=== PATIENT | female | born 1950 | race Caucasian/White ===

== ENCOUNTER 2016-08-25 10:36 | Emergency (ER) | payer OTHER ==
[~2016-08-25] VITALS: Ht 162.6 cm; Wt 75.0 kg
[~2016-08-25 10:36] MED LIST: PHEN32.43 PO
[2016-08-25 13:01] VITALS: BP 135/75
== END 2016-08-25 13:19 | disposition home or self-care (01) ==
LOC: EMS 10:38
DX: Z76.0 Encounter for issue of repeat prescription (principal); G43.909 Migraine, unspecified, not intractable, without status migrainosus
CPT/HCPCS: 99283

== ENCOUNTER 2018-03-01 10:03 | Emergency (ER) | payer OTHER ==
[~2018-03-01] VITALS: Ht 162.6 cm; Wt 72.7 kg
[2018-03-01 11:33] VITALS: BP 117/62
== END 2018-03-01 11:38 | disposition home or self-care (01) ==
LOC: EMS 10:03
DX: Z76.0 Encounter for issue of repeat prescription (principal)
CPT/HCPCS: 99283

== ENCOUNTER 2020-06-21 20:44 | Emergency (ER) | payer MEDICARE, OTHER ==
[~2020-06-21] VITALS: Ht 162.6 cm; Wt 74.5 kg
[~2020-06-21 20:44] MED LIST changes: -PHEN32.43 PO; +PHEN32.46 PO
[2020-06-21 22:52] LABS: COVID AG,FIA SOURCE NASOPHARYNGEAL
[2020-06-21 23:47] LABS: BASOPHILS % (AUTO) 0.4 % (0.0-2.0); EOSINOPHILS % (AUTO) 0.4 % (1.0-6.0); HEMATOCRIT 41.8 % (36-46); HEMOGLOBIN 14.1 g/dL (12.0-16.0); LYMPHOCYTES # (AUTO) 1.8 K/uL (1.0-4.8); LYMPHOCYTES % (AUTO) 19.8 % (22.0-44.0); MEAN CORPUSCULAR HEMOGLOBIN 30.6 pg (26.0-34.0); MEAN CORPUSCULAR HGB CONC 33.8 G/dL (31.0-37.0); MEAN CORPUSCULAR VOLUME 91 fL (80-100); MONOCYTES # (AUTO) 0.6 K/uL (0.1-1.0); MONOCYTES % (AUTO) 6.7 % (2.0-9.0); NEUTROPHILS # (AUTO) 6.8 K/uL (1.8-7.7); NEUTROPHILS % (AUTO) 72.7 % (40.0-70.0); PLATELET COUNT (AUTO) 362 K/uL (150-450); RED BLOOD CELL COUNT(AUTO) 4.61 MIL/uL (4.00-5.20); RED CELL DISTRIBUTION WIDTH 12.6 % (11.5-14.5)
[2020-06-21 23:57] LABS: CARBON DIOXIDE 29 mmol/L (22-29); CHLORIDE 91 mmol/L (98-107); POTASSIUM 3.7 mmol/L (3.5-5.1); SODIUM SERUM 128 mmol/L (136-145)
[2020-06-21 23:58] LABS: ANION GAP 8 mmol/L (8-16); CALCIUM, TOTAL 8.9 mg/dL (8.8-10.5); CREATININE 0.62 mg/dL (0.60-1.30); GLOMERULAR FILTR. RATE CALC > 60 mL/min (>60); GLUCOSE,RANDOM 117 mg/dL (70-110); UREA NITROGEN, BLOOD 10 mg/dL (7-18)
[2020-06-22 00:03] LABS: ALANINE AMINOTRANSFERASE 27 U/L (12-78); ALBUMIN 3.8 g/dL (3.4-5.0); ALKALINE PHOSPHATASE 175 U/L (46-116); ASPARTATE AMINOTRANSFERASE 21 U/L (15-37); BILIRUBIN,TOTAL 0.3 mg/dL (0.1-1.0); TOTAL PROTEIN, SERUM 7.3 g/dL (6.4-8.2)
[2020-06-22] MEDS ORDERED: PHENobarbital 30 MG TABLET PO ONE (01:00)
[2020-06-22] MEDS ORDERED: IBUPROFEN 400 MG TABLET PO ONE (01:15)
[2020-06-22] MEDS ORDERED: ACETAMINOPHEN 325 MG TABLET PO ONE (01:15)
[2020-06-22 03:15] LABS: APPEARANCE,URINE CLOUDY (CLEAR); BILIRUBIN,URINE NEGATIVE (NEGATIVE); GLUCOSE, URINE (UA) NEGATIVE (NEGATIVE); KETONES,URINE NEGATIVE (NEGATIVE); LEUKOCYTE ESTERASE ,URINE MODERATE (NEGATIVE); NITRATE,URINE NEGATIVE (NEGATIVE); OCCULT BLOOD,URINE NEGATIVE (NEGATIVE); PH,URINE 7.5 (5.0-8.0); PROTEIN,URINE NEGATIVE (NEGATIVE); UROBILINOGEN,URINE 0.2 mg/dL (<=1.0)
[2020-06-22 03:34] LABS: BACTERIA,URINE Moderate /HPF (None Seen); RBC,URINE 0-2 /HPF (0-2); SQUAMOUS EPITHELIAL CELL,UR Few /LPF (None Seen)
[2020-06-22] MEDS ORDERED: LIDOCAINE/PF 1% 2 ML VIAL IM ONE (03:45)
[2020-06-22] MEDS ORDERED: CefTRIAXone SODIUM 1 GM/VIAL IM ONE (03:45)
[2020-06-22 05:46] VITALS: BP 126/71
== END 2020-06-22 05:59 | disposition home or self-care (01) ==
LOC: EMS 20:44
DX: N39.0 Urinary tract infection, site not specified (principal); R51.9 Headache, unspecified; Z79.899 Other long term (current) drug therapy; Z20.822 Contact with and (suspected) exposure to COVID-19
CPT/HCPCS: 36415; 70450; 80053; 80184; 81001; 85025; 87086; 87426; 96372; 99285; G0480; J0696; J3490; U0003

== ENCOUNTER 2021-09-17 07:43 | Emergency (ER) | payer OTHER ==
[~2021-09-17] VITALS: Ht 162.6 cm; Wt 77.3 kg
[~2021-09-17 07:43] MED LIST changes: +AMLO-258 PO; +ASPI-989 PO; +CARB-60 PO; +PHEN30TA50 PO; -PHEN32.46 PO
[2021-09-17 08:23] LABS: BASOPHILS % (AUTO) 0.5 % (0.0-2.0); EOSINOPHILS % (AUTO) 0.6 % (1.0-6.0); HEMATOCRIT 36.5 % (36-46); HEMOGLOBIN 12.9 g/dL (12.0-16.0); LYMPHOCYTES # (AUTO) 1.3 K/uL (1.0-4.8); LYMPHOCYTES % (AUTO) 24.5 % (22.0-44.0); MEAN CORPUSCULAR HEMOGLOBIN 30.9 pg (26.0-34.0); MEAN CORPUSCULAR HGB CONC 35.3 G/dL (31.0-37.0); MEAN CORPUSCULAR VOLUME 88 fL (80-100); MONOCYTES # (AUTO) 0.6 K/uL (0.1-1.0); MONOCYTES % (AUTO) 11.3 % (2.0-9.0); NEUTROPHILS # (AUTO) 3.2 K/uL (1.8-7.7); NEUTROPHILS % (AUTO) 63.1 % (40.0-70.0); PLATELET COUNT (AUTO) 363 K/uL (150-450); RED BLOOD CELL COUNT(AUTO) 4.17 MIL/uL (4.00-5.20); RED CELL DISTRIBUTION WIDTH 12.7 % (11.5-14.5)
[2021-09-17] MEDS ORDERED: LOSA1TAB2 PO (08:28)
[2021-09-17] MEDS ORDERED: CARB-60 PO (08:28)
[2021-09-17 08:35] LABS: ANION GAP 4 mmol/L (8-16); CALCIUM, TOTAL 8.2 mg/dL (8.8-10.5); CARBAMAZEPINE (TEGRETOL) 8.7 mcg/mL (4.0-12.0); CARBON DIOXIDE 30 mmol/L (22-29); CHLORIDE 90 mmol/L (98-107); CREATININE 0.66 mg/dL (0.60-1.30); GLOMERULAR FILTR. RATE CALC > 60 mL/min (>60); GLUCOSE,RANDOM 90 mg/dL (70-110); PHENOBARBITAL 11 mcg/mL (15-40); POTASSIUM 4.6 mmol/L (3.5-5.1); UREA NITROGEN, BLOOD 11 mg/dL (7-18)
[2021-09-17 08:37] LABS: SODIUM SERUM 124 mmol/L (136-145)
[2021-09-17 09:22] LABS: COVID AG,FIA SOURCE NASOPHARYNGEAL
[2021-09-17 11:28] VITALS: BP 120/67
== END 2021-09-17 12:41 | disposition short-term general hospital (02) ==
LOC: EMS 07:51
DX: E87.1 Hypo-osmolality and hyponatremia (principal); R63.1 Polydipsia; I10 Essential (primary) hypertension; Z79.899 Other long term (current) drug therapy; Z20.822 Contact with and (suspected) exposure to COVID-19
CPT/HCPCS: 80048; 80156; 80184; 85025; 93005; 99285

== ENCOUNTER 2021-10-29 19:57 | Emergency (ER) | payer OTHER ==
[~2021-10-29] VITALS: Ht 162.6 cm; Wt 77.3 kg
[~2021-10-29 19:57] MED LIST changes: +LOSA1TAB2 PO
[2021-10-29 22:39] VITALS: BP 140/67
== END 2021-10-29 23:00 | disposition home or self-care (01) ==
LOC: EMS 20:28
DX: I10 Essential (primary) hypertension (principal); Z86.69 Personal history of other diseases of the nervous system and sense organs
CPT/HCPCS: 99283; Z7502

== ENCOUNTER 2022-01-12 12:56 | Emergency (ER) | payer OTHER ==
[~2022-01-12] VITALS: Ht 162.6 cm; Wt 81.8 kg
[2022-01-12] MEDS ORDERED: SODIUM CHLORIDE 0.9% 1,000 ML IV ONE (14:15)
[2022-01-12 14:58] LABS: BASOPHILS % (AUTO) 0.2 % (0.0-2.0); EOSINOPHILS % (AUTO) 0.2 % (1.0-6.0); HEMATOCRIT 36.9 % (36-46); HEMOGLOBIN 12.6 g/dL (12.0-16.0); LYMPHOCYTES # (AUTO) 1.2 K/uL (1.0-4.8); LYMPHOCYTES % (AUTO) 13.5 % (22.0-44.0); MEAN CORPUSCULAR HEMOGLOBIN 30.9 pg (26.0-34.0); MEAN CORPUSCULAR HGB CONC 34.2 G/dL (31.0-37.0); MEAN CORPUSCULAR VOLUME 90 fL (80-100); MONOCYTES # (AUTO) 0.7 K/uL (0.1-1.0); MONOCYTES % (AUTO) 7.5 % (2.0-9.0); NEUTROPHILS # (AUTO) 7.3 K/uL (1.8-7.7); NEUTROPHILS % (AUTO) 78.6 % (40.0-70.0); PLATELET COUNT (AUTO) 318 K/uL (150-450); RED BLOOD CELL COUNT(AUTO) 4.09 MIL/uL (4.00-5.20); RED CELL DISTRIBUTION WIDTH 13.1 % (11.5-14.5)
[2022-01-12 15:12] LABS: ANION GAP 6 mmol/L (8-16); CALCIUM, TOTAL 8.3 mg/dL (8.8-10.5); CARBON DIOXIDE 30 mmol/L (22-29); CHLORIDE 97 mmol/L (98-107); GLOMERULAR FILTR. RATE CALC > 60 mL/min (>60); GLUCOSE,RANDOM 107 mg/dL (70-110); SODIUM SERUM 133 mmol/L (136-145); UREA NITROGEN, BLOOD 9 mg/dL (7-18)
[2022-01-12 15:15] LABS: ALANINE AMINOTRANSFERASE 24 U/L (12-78); ALKALINE PHOSPHATASE 131 U/L (46-116); ASPARTATE AMINOTRANSFERASE 16 U/L (15-37); BILIRUBIN,TOTAL 0.1 mg/dL (0.1-1.0); CREATINE KINASE, TOTAL ONLY 30 U/L (26-192); TOTAL PROTEIN, SERUM 6.3 g/dL (6.4-8.2)
[2022-01-12 15:19] LABS: B-TYPE NATRIURETIC PEPTIDE 18 pg/mL (0-100)
[2022-01-12 15:25] LABS: COVID AG,FIA SOURCE NASAL SWAB
[2022-01-12 15:44] LABS: CARBAMAZEPINE (TEGRETOL) 8.4 mcg/mL (4.0-12.0); PHENOBARBITAL 14 mcg/mL (15-40)
[2022-01-12 17:21] VITALS: BP 123/61
[2022-01-12 17:39] LABS: APPEARANCE,URINE CLEAR (CLEAR); BILIRUBIN,URINE NEGATIVE (NEGATIVE); GLUCOSE, URINE (UA) NEGATIVE (NEGATIVE); KETONES,URINE NEGATIVE (NEGATIVE); LEUKOCYTE ESTERASE ,URINE LARGE (NEGATIVE); NITRATE,URINE NEGATIVE (NEGATIVE); OCCULT BLOOD,URINE NEGATIVE (NEGATIVE); PROTEIN,URINE NEGATIVE (NEGATIVE); SPECIFIC GRAVITIY, URINE 1.005 (1.003-1.030); UROBILINOGEN,URINE <=1.0 mg/dL (<=1.0)
[2022-01-12 17:48] LABS: RBC,URINE None Seen /HPF (0-2)
[2022-01-12 17:50] LABS: BACTERIA,URINE Rare /HPF (None Seen)
== END 2022-01-12 17:15 | disposition left against medical advice (07) ==
LOC: EMS 12:59
DX: R55 Syncope and collapse (principal); I10 Essential (primary) hypertension; Z86.69 Personal history of other diseases of the nervous system and sense organs; Z20.822 Contact with and (suspected) exposure to COVID-19
CPT/HCPCS: 99285; 96360; 70450; 71045; 87426; 80053; 80156; 80184; 81001; 82550; 83880; 84484; 85025; 36415; 87086; 93005; J7030; 87077

== ENCOUNTER 2022-04-20 15:04 | Emergency (ER) | payer OTHER ==
[~2022-04-20] VITALS: Ht 162.6 cm; Wt 86.4 kg
[~2022-04-20 15:04] MED LIST changes: +LOSA-422 PO; -LOSA1TAB2 PO
[2022-04-20 15:11] VITALS: BP 110/73
[2022-04-20] MEDS ORDERED: LOSA-30 PO (15:47)
== END 2022-04-20 16:14 | disposition home or self-care (01) ==
LOC: EMS 15:07
DX: Z76.0 Encounter for issue of repeat prescription (principal); I10 Essential (primary) hypertension; R56.9 Unspecified convulsions
CPT/HCPCS: 99283; Z7502

== ENCOUNTER 2022-04-29 08:35 | Emergency (ER) | payer OTHER ==
[~2022-04-29] VITALS: Ht 162.6 cm; Wt 84.1 kg
[~2022-04-29 08:35] MED LIST changes: +LOSA-30 PO
[2022-04-29 08:36] VITALS: BP 126/83
== END 2022-04-29 09:56 | disposition home or self-care (01) ==
LOC: EMS 08:40
DX: G40.909 Epilepsy, unspecified, not intractable, without status epilepticus (principal); I10 Essential (primary) hypertension
CPT/HCPCS: 99281; Z7502

== ENCOUNTER 2022-05-22 15:11 | Emergency (ER) | payer OTHER ==
[~2022-05-22] VITALS: Ht 162.6 cm; Wt 81.8 kg
[~2022-05-22 15:11] MED LIST changes: -LOSA-30 PO
[2022-05-22 15:23] VITALS: BP 122/63
[2022-05-22] MEDS ORDERED: CARB-60 PO (15:33)
== END 2022-05-22 15:50 | disposition home or self-care (01) ==
LOC: EMS 15:34
DX: G40.909 Epilepsy, unspecified, not intractable, without status epilepticus (principal); I10 Essential (primary) hypertension
CPT/HCPCS: 99281; Z7502

== ENCOUNTER 2022-07-01 13:32 | Emergency (ER) | payer MEDICARE, OTHER ==
[~2022-07-01] VITALS: Ht 162.6 cm; Wt 81.8 kg
[2022-07-01 13:54] VITALS: BP 107/64
[2022-07-01] MEDS ORDERED: PHEN20EL10 PO (14:30)
== END 2022-07-01 15:14 | disposition home or self-care (01) ==
LOC: EMS 13:37
DX: R56.9 Unspecified convulsions (principal); I10 Essential (primary) hypertension; Z76.0 Encounter for issue of repeat prescription
CPT/HCPCS: 99281; Z7502

== ENCOUNTER 2022-08-10 15:06 | Emergency (ER) | payer OTHER ==
[~2022-08-10] VITALS: Ht 162.6 cm; Wt 86.4 kg
[~2022-08-10 15:06] MED LIST changes: +PHEN20EL10 PO
[2022-08-10 16:16] LABS: BASOPHILS % (AUTO) 0.3 % (0.0-2.0); EOSINOPHILS % (AUTO) 0.1 % (1.0-6.0); HEMATOCRIT 37.3 % (36-46); HEMOGLOBIN 12.8 g/dL (12.0-16.0); LYMPHOCYTES # (AUTO) 1.4 K/uL (1.0-4.8); LYMPHOCYTES % (AUTO) 12.8 % (22.0-44.0); MEAN CORPUSCULAR HGB CONC 34.2 G/dL (31.0-37.0); MEAN CORPUSCULAR VOLUME 91 fL (80-100); MONOCYTES # (AUTO) 0.8 K/uL (0.1-1.0); MONOCYTES % (AUTO) 7.7 % (2.0-9.0); NEUTROPHILS # (AUTO) 8.7 K/uL (1.8-7.7); NEUTROPHILS % (AUTO) 79.1 % (40.0-70.0); PLATELET COUNT (AUTO) 340 K/uL (150-450); RED BLOOD CELL COUNT(AUTO) 4.11 MIL/uL (4.00-5.20); RED CELL DISTRIBUTION WIDTH 12.9 % (11.5-14.5)
[2022-08-10] MEDS ORDERED: SODIUM CHLORIDE 0.9% 1,000 ML IV ONE (16:30)
[2022-08-10 16:36] LABS: ANION GAP 8 mmol/L (8-16); CALCIUM, TOTAL 8.5 mg/dL (8.8-10.5); CARBON DIOXIDE 29 mmol/L (22-29); CHLORIDE 90 mmol/L (98-107); CREATININE 0.67 mg/dL (0.60-1.30); GLOMERULAR FILTR. RATE CALC > 60 mL/min (>60); GLUCOSE,RANDOM 118 mg/dL (70-110); POTASSIUM 3.1 mmol/L (3.5-5.1); SODIUM SERUM 127 mmol/L (136-145); UREA NITROGEN, BLOOD 14 mg/dL (7-18)
[2022-08-10 16:39] LABS: ALANINE AMINOTRANSFERASE 21 U/L (12-78); ALBUMIN 3.6 g/dL (3.4-5.0); ALKALINE PHOSPHATASE 120 U/L (46-116); ASPARTATE AMINOTRANSFERASE 18 U/L (15-37); BILIRUBIN,TOTAL 0.2 mg/dL (0.1-1.0); PHENOBARBITAL 18 mcg/mL (15-40); TOTAL PROTEIN, SERUM 6.8 g/dL (6.4-8.2)
[2022-08-10 16:41] LABS: CARBAMAZEPINE (TEGRETOL) 18.9 mcg/mL (4.0-12.0)
[2022-08-10 17:58] LABS: COVID AG,FIA SOURCE NASAL SWAB
[2022-08-10 18:18] LABS: INFLUENZA TYPE A NEGATIVE FOR TYPE A (NEGATIVE); INFLUENZA TYPE B NEGATIVE FOR TYPE B (NEGATIVE)
[2022-08-10 18:52] VITALS: BP 140/67
[2022-08-10 19:21] LABS: APPEARANCE,URINE CLEAR (CLEAR); BILIRUBIN,URINE NEGATIVE (NEGATIVE); GLUCOSE, URINE (UA) NEGATIVE (NEGATIVE); KETONES,URINE NEGATIVE (NEGATIVE); LEUKOCYTE ESTERASE ,URINE LARGE (NEGATIVE); NITRATE,URINE NEGATIVE (NEGATIVE); OCCULT BLOOD,URINE NEGATIVE (NEGATIVE); PH,URINE 6.5 (5.0-8.0); PROTEIN,URINE TRACE mg/dL (NEGATIVE); SPECIFIC GRAVITIY, URINE 1.019 (1.003-1.030); UROBILINOGEN,URINE <=1.0 mg/dL (<=1.0)
[2022-08-10 19:30] LABS: BACTERIA,URINE Rare /HPF (None Seen); RBC,URINE None Seen /HPF (0-2); SQUAMOUS EPITHELIAL CELL,UR Few /LPF (None Seen)
== END 2022-08-10 22:05 | disposition short-term general hospital (02) ==
LOC: EMS 15:09
DX: R55 Syncope and collapse (principal); E87.1 Hypo-osmolality and hyponatremia; Z51.81 Encounter for therapeutic drug level monitoring; E87.6 Hypokalemia; I10 Essential (primary) hypertension; Z20.822 Contact with and (suspected) exposure to COVID-19
CPT/HCPCS: 99291; 96360; 70450; 71045; 87426; 80053; 80156; 80184; 83930; 81001; 84300; 84484; 85025; 87804; 36415; 87086; 83935; 87186; 93005; J7030

== ENCOUNTER 2022-08-29 17:01 | Inpatient (IN) | payer MEDICARE, MEDICAID ==
[~2022-08-29] VITALS: Ht 162.6 cm; Wt 85.4 kg
[2022-08-29 17:58] LABS: BASOPHILS % (AUTO) 0.5 % (0.0-2.0); EOSINOPHILS % (AUTO) 0.3 % (1.0-6.0); HEMATOCRIT 39.1 % (36-46); HEMOGLOBIN 13.4 g/dL (12.0-16.0); LYMPHOCYTES # (AUTO) 1.4 K/uL (1.0-4.8); LYMPHOCYTES % (AUTO) 21.2 % (22.0-44.0); MEAN CORPUSCULAR HEMOGLOBIN 31.2 pg (26.0-34.0); MEAN CORPUSCULAR HGB CONC 34.2 G/dL (31.0-37.0); MEAN CORPUSCULAR VOLUME 91 fL (80-100); MONOCYTES # (AUTO) 0.5 K/uL (0.1-1.0); MONOCYTES % (AUTO) 7.8 % (2.0-9.0); NEUTROPHILS # (AUTO) 4.5 K/uL (1.8-7.7); NEUTROPHILS % (AUTO) 70.2 % (40.0-70.0); PLATELET COUNT (AUTO) 365 K/uL (150-450); RED BLOOD CELL COUNT(AUTO) 4.29 MIL/uL (4.00-5.20)
[2022-08-29 18:09] LABS: ANION GAP 12 mmol/L (8-16); CALCIUM, TOTAL 8.3 mg/dL (8.8-10.5); CARBON DIOXIDE 27 mmol/L (22-29); CHLORIDE 90 mmol/L (98-107); CREATININE 0.63 mg/dL (0.60-1.30); GLOMERULAR FILTR. RATE CALC > 60 mL/min (>60); GLUCOSE,RANDOM 114 mg/dL (70-110); POTASSIUM 3.5 mmol/L (3.5-5.1); SODIUM SERUM 129 mmol/L (136-145); UREA NITROGEN, BLOOD 13 mg/dL (7-18)
[2022-08-29 18:16] LABS: ALANINE AMINOTRANSFERASE 26 U/L (12-78); ALBUMIN 3.5 g/dL (3.4-5.0); ALKALINE PHOSPHATASE 122 U/L (46-116); ASPARTATE AMINOTRANSFERASE 22 U/L (15-37); BILIRUBIN,TOTAL 0.3 mg/dL (0.1-1.0); TOTAL PROTEIN, SERUM 6.5 g/dL (6.4-8.2)
[2022-08-29] MEDS ORDERED: QUEtiapine FUMARATE 100 MG TABLET PO PRN (18:30)
[2022-08-29] MEDS ORDERED: ZOLPIDEM TARTRATE 5 MG TABLET PO PRN (18:30)
[2022-08-29] MEDS ORDERED: AMLO5TAB66 PO (18:31)
[2022-08-29] MEDS ORDERED: PHEN30TA50 PO (18:31)
[2022-08-29] MEDS ORDERED: GINK60CA2 PO (18:31)
[2022-08-29] MEDS ORDERED: MULT1TAB67 PO (18:31)
[2022-08-29] MEDS ORDERED: CARB200T6 PO (18:31)
[2022-08-29] MEDS ORDERED: CALC-1249 PO (18:31)
[2022-08-29] MEDS ORDERED: ASPI-1444 PO (18:31)
[2022-08-29] MEDS ORDERED: OMEG-80 PO (18:31)
[2022-08-29 18:51] LABS: COVID AG,FIA SOURCE NASAL SWAB
[2022-08-30 02:45] VITALS: BP 128/72
[2022-08-30] MEDS: LORazepam 1 MG TABLET PO PRN ×2 (02:51→09:10)
[2022-08-30 03:03] VITALS: BP 155/89
[2022-08-30] MEDS ORDERED: INFLUENZA VIRUS VACCINE QVS 2022-23 (6MO+)/PF 60 MCG/0.5 ML SYRINGE IM. ONE (04:45)
[2022-08-30] MEDS ORDERED: MAG HYDROX/AL HYDROX/SIMETH ES 30 ML SUSPENSION UDCUP PO PRN (06:45)
[2022-08-30] MEDS ORDERED: LOPERAMIDE HCL 2 MG CAPSULE PO PRN (06:45)
[2022-08-30] MEDS ORDERED: ALBUTEROL SULFATE HFA 90 MCG/PUFF 8 GM INHALER IH PRN (06:45)
[2022-08-30] MEDS ORDERED: DOCUSATE SODIUM 100 MG CAPSULE PO PRN (06:45)
[2022-08-30] MEDS ORDERED: ACETAMINOPHEN 325 MG TABLET PO PRN (06:45)
[2022-08-30] MEDS ORDERED: PETROLATUM,WHITE 28 GM JELLY TP PRN (06:45)
[2022-08-30] MEDS ORDERED: CloNIDine HCL 0.1 MG TABLET PO PRN (06:45)
[2022-08-30] MEDS ORDERED: MAGNESIUM HYDROXIDE SUSPENSION 30 ML UDCUP PO PRN (06:45)
[2022-08-30] MEDS ORDERED: IBUPROFEN 400 MG TABLET PO PRN (06:45)
[2022-08-30] MEDS ORDERED: ONDANSETRON HCL 4 MG TABLET PO PRN (06:45)
[2022-08-30] MEDS ORDERED: GuaiFENesin/D-METHORPHAN [SUGAR-FREE] 200-20MG/10 ML SYRUP UDCUP PO PRN (06:45)
[2022-08-30] MEDS ORDERED: NICOTINE 14 MG/24 HOUR PATCH TD PRN (06:45)
[2022-08-30 08:29] VITALS: BP 146/77
[2022-08-30] MEDS: CALCIUM OYSTER SHELL 250 MG-VIT D3 125 UNITS[3.125MCG] TABLET PO SCH (09:09)
[2022-08-30] MEDS: ASPIRIN 81 MG DR TABLET PO SCH (09:09)
[2022-08-30] MEDS: MULTIVITAMINS, THERAPEUTIC TABLET PO SCH (09:10)
[2022-08-30] MEDS: AmLODIPine BESYLATE 5 MG TABLET PO SCH (09:10)
[2022-08-30] MEDS: CarBAMazepine 200 MG TABLET PO SCH ×3 (09:12→16:18)
[2022-08-30] MEDS: PHENobarbital 30 MG TABLET PO SCH ×2 (09:29→20:42)
[2022-08-30 12:13] LABS: CARBAMAZEPINE (TEGRETOL) 7.6 mcg/mL (4.0-12.0)
[2022-08-30 16:29] VITALS: BP 108/50
[2022-08-31] MEDS: MULTIVITAMINS, THERAPEUTIC TABLET PO SCH (08:41)
[2022-08-31] MEDS: ASPIRIN 81 MG DR TABLET PO SCH (08:41)
[2022-08-31] MEDS: PHENobarbital 30 MG TABLET PO SCH ×2 (08:41→20:11)
[2022-08-31] MEDS: AmLODIPine BESYLATE 5 MG TABLET PO SCH (08:41)
[2022-08-31] MEDS: CarBAMazepine 200 MG TABLET PO SCH ×3 (08:41→17:41)
[2022-08-31] MEDS: CALCIUM OYSTER SHELL 250 MG-VIT D3 125 UNITS[3.125MCG] TABLET PO SCH (08:42)
[2022-08-31 08:56] VITALS: BP 129/72
[2022-08-31 16:22] VITALS: BP 103/69
[2022-09-01 08:33] VITALS: BP 125/74
[2022-09-01] MEDS: MULTIVITAMINS, THERAPEUTIC TABLET PO SCH (08:33)
[2022-09-01] MEDS: PHENobarbital 30 MG TABLET PO SCH ×2 (08:33→21:29)
[2022-09-01] MEDS: CarBAMazepine 200 MG TABLET PO SCH ×3 (08:34→16:20)
[2022-09-01] MEDS: CALCIUM OYSTER SHELL 250 MG-VIT D3 125 UNITS[3.125MCG] TABLET PO SCH (08:34)
[2022-09-01] MEDS: ASPIRIN 81 MG DR TABLET PO SCH (08:34)
[2022-09-01] MEDS: AmLODIPine BESYLATE 5 MG TABLET PO SCH (08:34)
[2022-09-01 16:37] VITALS: BP 137/64
[2022-09-01 20:12] VITALS: BP 150/69
[2022-09-02 08:00] VITALS: BP 136/78
[2022-09-02] MEDS: CarBAMazepine 200 MG TABLET PO SCH ×3 (08:19→16:21)
[2022-09-02] MEDS: MULTIVITAMINS, THERAPEUTIC TABLET PO SCH (08:20)
[2022-09-02] MEDS: AmLODIPine BESYLATE 5 MG TABLET PO SCH (08:20)
[2022-09-02] MEDS: ASPIRIN 81 MG DR TABLET PO SCH (08:20)
[2022-09-02] MEDS: CALCIUM OYSTER SHELL 250 MG-VIT D3 125 UNITS[3.125MCG] TABLET PO SCH (08:20)
[2022-09-02] MEDS: PHENobarbital 30 MG TABLET PO SCH ×2 (08:20→20:37)
[2022-09-02 09:14] LABS: ANION GAP 5 mmol/L (8-16); CALCIUM, TOTAL 8.5 mg/dL (8.8-10.5); CARBON DIOXIDE 27 mmol/L (22-29); CHLORIDE 100 mmol/L (98-107); CREATININE 0.68 mg/dL (0.60-1.30); GLOMERULAR FILTR. RATE CALC > 60 mL/min (>60); GLUCOSE,RANDOM 127 mg/dL (70-110); POTASSIUM 3.9 mmol/L (3.5-5.1); SODIUM SERUM 132 mmol/L (136-145); UREA NITROGEN, BLOOD 10 mg/dL (7-18)
[2022-09-02 11:22] LABS: APPEARANCE,URINE CLEAR (CLEAR); BILIRUBIN,URINE NEGATIVE (NEGATIVE); GLUCOSE, URINE (UA) NEGATIVE (NEGATIVE); KETONES,URINE NEGATIVE (NEGATIVE); LEUKOCYTE ESTERASE ,URINE SMALL (NEGATIVE); NITRATE,URINE NEGATIVE (NEGATIVE); OCCULT BLOOD,URINE NEGATIVE (NEGATIVE); PH,URINE 7.5 (5.0-8.0); PROTEIN,URINE NEGATIVE (NEGATIVE); SPECIFIC GRAVITIY, URINE 1.009 (1.003-1.030); UROBILINOGEN,URINE <=1.0 mg/dL (<=1.0)
[2022-09-02 11:32] LABS: RBC,URINE None Seen /HPF (0-2)
[2022-09-02 11:33] LABS: BACTERIA,URINE Few /HPF (None Seen); WBC,URINE 0-2 /HPF (0-5)
[2022-09-02 11:34] LABS: SQUAMOUS EPITHELIAL CELL,UR Rare /LPF (None Seen)
[2022-09-02 12:12] LABS: AMPHET/METH SCREEN,URINE NEGATIVE (NEGATIVE); BARBITURATE SCREEN, URINE POSITIVE (NEGATIVE); BENZODIAZEPINES SCREEN,URINE NEGATIVE (NEGATIVE); CANNABINOID SCREEN,URINE NEGATIVE (NEGATIVE); COCAINE SCREEN,URINE NEGATIVE (NEGATIVE); METHADONE SCREEN, URINE NEGATIVE (NEGATIVE); OPIATE SCREEN,URINE NEGATIVE (NEGATIVE); PHENCYCLIDINE SCREEN,URINE NEGATIVE (NEGATIVE)
[2022-09-02 17:10] VITALS: BP 147/94
[2022-09-02] MEDS: QUEtiapine FUMARATE 25 MG TABLET PO SCH (18:29)
[2022-09-02 20:11] VITALS: BP 125/60
[2022-09-03] MEDS: CarBAMazepine 200 MG TABLET PO SCH ×3 (08:22→17:58)
[2022-09-03] MEDS: ASPIRIN 81 MG DR TABLET PO SCH (08:22)
[2022-09-03] MEDS: QUEtiapine FUMARATE 25 MG TABLET PO SCH ×2 (08:22→17:58)
[2022-09-03] MEDS: AmLODIPine BESYLATE 5 MG TABLET PO SCH (08:22)
[2022-09-03] MEDS: MULTIVITAMINS, THERAPEUTIC TABLET PO SCH (08:22)
[2022-09-03] MEDS: CALCIUM OYSTER SHELL 250 MG-VIT D3 125 UNITS[3.125MCG] TABLET PO SCH (08:22)
[2022-09-03] MEDS: PHENobarbital 30 MG TABLET PO SCH ×2 (08:22→20:58)
[2022-09-03 09:41] VITALS: BP 120/66
[2022-09-04 07:06] LABS: COVID AG,FIA SOURCE NASAL SWAB
[2022-09-04 08:02] VITALS: BP 150/66
[2022-09-04] MEDS: AmLODIPine BESYLATE 5 MG TABLET PO SCH (08:05)
[2022-09-04] MEDS: PHENobarbital 30 MG TABLET PO SCH ×2 (08:05→20:14)
[2022-09-04] MEDS: CarBAMazepine 200 MG TABLET PO SCH ×3 (08:05→17:12)
[2022-09-04] MEDS: ASPIRIN 81 MG DR TABLET PO SCH (08:05)
[2022-09-04] MEDS: QUEtiapine FUMARATE 25 MG TABLET PO SCH ×2 (08:06→17:00)
[2022-09-04] MEDS: CALCIUM OYSTER SHELL 250 MG-VIT D3 125 UNITS[3.125MCG] TABLET PO SCH (08:06)
[2022-09-04] MEDS: MULTIVITAMINS, THERAPEUTIC TABLET PO SCH (08:06)
[2022-09-04 16:03] VITALS: BP 124/63
[2022-09-05 07:24] LABS: ANION GAP 4 mmol/L (8-16); CALCIUM, TOTAL 8.5 mg/dL (8.8-10.5); CARBON DIOXIDE 29 mmol/L (22-29); CHLORIDE 101 mmol/L (98-107); CREATININE 0.64 mg/dL (0.60-1.30); GLOMERULAR FILTR. RATE CALC > 60 mL/min (>60); GLUCOSE,RANDOM 101 mg/dL (70-110); POTASSIUM 4.9 mmol/L (3.5-5.1); SODIUM SERUM 134 mmol/L (136-145); UREA NITROGEN, BLOOD 11 mg/dL (7-18)
[2022-09-05 08:30] VITALS: BP 143/62
[2022-09-05] MEDS: PHENobarbital 30 MG TABLET PO SCH ×2 (08:32→21:10)
[2022-09-05] MEDS: QUEtiapine FUMARATE 25 MG TABLET PO SCH ×2 (08:32→16:14)
[2022-09-05] MEDS: AmLODIPine BESYLATE 5 MG TABLET PO SCH (08:32)
[2022-09-05] MEDS: ASPIRIN 81 MG DR TABLET PO SCH (08:32)
[2022-09-05] MEDS: MULTIVITAMINS, THERAPEUTIC TABLET PO SCH (08:32)
[2022-09-05] MEDS: CarBAMazepine 200 MG TABLET PO SCH ×3 (08:32→16:14)
[2022-09-05] MEDS: CALCIUM OYSTER SHELL 250 MG-VIT D3 125 UNITS[3.125MCG] TABLET PO SCH (08:33)
[2022-09-05 12:08] VITALS: BP 132/64
[2022-09-05 16:07] VITALS: BP 140/82
[2022-09-06] MEDS: CarBAMazepine 200 MG TABLET PO SCH ×3 (08:31→16:39)
[2022-09-06] MEDS: MULTIVITAMINS, THERAPEUTIC TABLET PO SCH (08:31)
[2022-09-06] MEDS: ASPIRIN 81 MG DR TABLET PO SCH (08:31)
[2022-09-06] MEDS: QUEtiapine FUMARATE 25 MG TABLET PO SCH ×2 (08:31→16:39)
[2022-09-06] MEDS: AmLODIPine BESYLATE 5 MG TABLET PO SCH (08:31)
[2022-09-06] MEDS: PHENobarbital 30 MG TABLET PO SCH ×2 (08:31→20:20)
[2022-09-06] MEDS: CALCIUM OYSTER SHELL 250 MG-VIT D3 125 UNITS[3.125MCG] TABLET PO SCH (08:32)
[2022-09-06 17:18] VITALS: BP 155/92
[2022-09-07 08:31] VITALS: BP 123/55
[2022-09-07] MEDS: ASPIRIN 81 MG DR TABLET PO SCH (08:34)
[2022-09-07] MEDS: PHENobarbital 30 MG TABLET PO SCH ×2 (08:35→20:19)
[2022-09-07] MEDS: AmLODIPine BESYLATE 5 MG TABLET PO SCH (08:35)
[2022-09-07] MEDS: QUEtiapine FUMARATE 25 MG TABLET PO SCH ×2 (08:35→16:32)
[2022-09-07] MEDS: MULTIVITAMINS, THERAPEUTIC TABLET PO SCH (08:35)
[2022-09-07] MEDS: CarBAMazepine 200 MG TABLET PO SCH ×3 (08:36→16:32)
[2022-09-07] MEDS: CALCIUM OYSTER SHELL 250 MG-VIT D3 125 UNITS[3.125MCG] TABLET PO SCH (08:37)
[2022-09-07 16:07] VITALS: BP 145/70
[2022-09-07 20:21] VITALS: BP 123/76
[2022-09-08 08:00] VITALS: BP 116/75
[2022-09-08] MEDS: PHENobarbital 30 MG TABLET PO SCH ×2 (08:19→20:58)
[2022-09-08] MEDS: AmLODIPine BESYLATE 5 MG TABLET PO SCH (08:19)
[2022-09-08] MEDS: MULTIVITAMINS, THERAPEUTIC TABLET PO SCH (08:19)
[2022-09-08] MEDS: QUEtiapine FUMARATE 25 MG TABLET PO SCH ×2 (08:19→16:08)
[2022-09-08] MEDS: CarBAMazepine 200 MG TABLET PO SCH ×3 (08:20→16:08)
[2022-09-08] MEDS: CALCIUM OYSTER SHELL 250 MG-VIT D3 125 UNITS[3.125MCG] TABLET PO SCH (08:20)
[2022-09-08] MEDS: ASPIRIN 81 MG DR TABLET PO SCH (08:22)
[2022-09-08 17:12] VITALS: BP 151/85
[2022-09-08 20:17] VITALS: BP 110/65
[2022-09-09 08:25] VITALS: BP 140/80
[2022-09-09] MEDS: MULTIVITAMINS, THERAPEUTIC TABLET PO SCH (08:31)
[2022-09-09] MEDS: QUEtiapine FUMARATE 25 MG TABLET PO SCH ×2 (08:31→16:16)
[2022-09-09] MEDS: ASPIRIN 81 MG DR TABLET PO SCH (08:31)
[2022-09-09] MEDS: CALCIUM OYSTER SHELL 250 MG-VIT D3 125 UNITS[3.125MCG] TABLET PO SCH (08:31)
[2022-09-09] MEDS: CarBAMazepine 200 MG TABLET PO SCH ×3 (08:31→16:16)
[2022-09-09] MEDS: AmLODIPine BESYLATE 5 MG TABLET PO SCH (08:31)
[2022-09-09] MEDS: PHENobarbital 30 MG TABLET PO SCH ×2 (08:32→20:40)
[2022-09-09 16:29] VITALS: BP 132/74
[2022-09-09 20:33] VITALS: BP 124/82
[2022-09-10 09:00] VITALS: BP 137/79
[2022-09-10] MEDS: ASPIRIN 81 MG DR TABLET PO SCH (09:27)
[2022-09-10] MEDS: MULTIVITAMINS, THERAPEUTIC TABLET PO SCH (09:27)
[2022-09-10] MEDS: CarBAMazepine 200 MG TABLET PO SCH ×3 (09:28→16:29)
[2022-09-10] MEDS: CALCIUM OYSTER SHELL 250 MG-VIT D3 125 UNITS[3.125MCG] TABLET PO SCH (09:28)
[2022-09-10] MEDS: PHENobarbital 30 MG TABLET PO SCH ×2 (09:28→20:24)
[2022-09-10] MEDS: AmLODIPine BESYLATE 5 MG TABLET PO SCH (09:28)
[2022-09-10] MEDS: QUEtiapine FUMARATE 25 MG TABLET PO SCH ×2 (09:34→16:28)
[2022-09-10 16:05] VITALS: BP 152/91
[2022-09-10 20:00] VITALS: BP 136/63
[2022-09-11 08:08] LABS: COVID AG,FIA SOURCE NASAL SWAB
[2022-09-11 08:09] VITALS: BP 132/68
[2022-09-11] MEDS: PHENobarbital 30 MG TABLET PO SCH ×2 (08:16→20:01)
[2022-09-11] MEDS: CALCIUM OYSTER SHELL 250 MG-VIT D3 125 UNITS[3.125MCG] TABLET PO SCH (08:17)
[2022-09-11] MEDS: CarBAMazepine 200 MG TABLET PO SCH ×3 (08:17→17:11)
[2022-09-11] MEDS: AmLODIPine BESYLATE 5 MG TABLET PO SCH (08:17)
[2022-09-11] MEDS: ASPIRIN 81 MG DR TABLET PO SCH (08:17)
[2022-09-11] MEDS: MULTIVITAMINS, THERAPEUTIC TABLET PO SCH (08:17)
[2022-09-11 08:42] LABS: BASOPHILS % (AUTO) 0.4 % (0.0-2.0); EOSINOPHILS % (AUTO) 0.9 % (1.0-6.0); HEMOGLOBIN 13.2 g/dL (12.0-16.0); LYMPHOCYTES # (AUTO) 1.1 K/uL (1.0-4.8); LYMPHOCYTES % (AUTO) 24.7 % (22.0-44.0); MEAN CORPUSCULAR HGB CONC 33.9 G/dL (31.0-37.0); MEAN CORPUSCULAR VOLUME 92 fL (80-100); MONOCYTES # (AUTO) 0.3 K/uL (0.1-1.0); MONOCYTES % (AUTO) 7.5 % (2.0-9.0); NEUTROPHILS % (AUTO) 66.5 % (40.0-70.0); PLATELET COUNT (AUTO) 304 K/uL (150-450); RED BLOOD CELL COUNT(AUTO) 4.26 MIL/uL (4.00-5.20)
[2022-09-11 08:50] LABS: ANION GAP 3 mmol/L (8-16); CALCIUM, TOTAL 8.5 mg/dL (8.8-10.5); CARBON DIOXIDE 30 mmol/L (22-29); CHLORIDE 99 mmol/L (98-107); CREATININE 0.59 mg/dL (0.60-1.30); GLOMERULAR FILTR. RATE CALC > 60 mL/min (>60); GLUCOSE,RANDOM 104 mg/dL (70-110); POTASSIUM 3.7 mmol/L (3.5-5.1); SODIUM SERUM 132 mmol/L (136-145); UREA NITROGEN, BLOOD 10 mg/dL (7-18)
[2022-09-11 16:06] VITALS: BP 140/66
[2022-09-11] MEDS: QUEtiapine FUMARATE 25 MG TABLET PO SCH (20:01)
[2022-09-12] MEDS: CarBAMazepine 200 MG TABLET PO SCH ×3 (08:08→17:35)
[2022-09-12] MEDS: PHENobarbital 30 MG TABLET PO SCH ×2 (08:08→20:04)
[2022-09-12] MEDS: ASPIRIN 81 MG DR TABLET PO SCH (08:08)
[2022-09-12] MEDS: CALCIUM OYSTER SHELL 250 MG-VIT D3 125 UNITS[3.125MCG] TABLET PO SCH (08:08)
[2022-09-12] MEDS: AmLODIPine BESYLATE 5 MG TABLET PO SCH (08:09)
[2022-09-12] MEDS: MULTIVITAMINS, THERAPEUTIC TABLET PO SCH (08:20)
[2022-09-12 08:22] VITALS: BP 129/65
[2022-09-12 16:05] VITALS: BP 131/68
[2022-09-12] MEDS: QUEtiapine FUMARATE 25 MG TABLET PO SCH (20:04)
[2022-09-13 08:15] VITALS: BP 140/84
[2022-09-13] MEDS: AmLODIPine BESYLATE 5 MG TABLET PO SCH (08:16)
[2022-09-13] MEDS: PHENobarbital 30 MG TABLET PO SCH ×2 (08:16→20:18)
[2022-09-13] MEDS: ASPIRIN 81 MG DR TABLET PO SCH (08:16)
[2022-09-13] MEDS: MULTIVITAMINS, THERAPEUTIC TABLET PO SCH (08:17)
[2022-09-13] MEDS: CarBAMazepine 200 MG TABLET PO SCH ×3 (08:17→19:02)
[2022-09-13] MEDS: CALCIUM OYSTER SHELL 250 MG-VIT D3 125 UNITS[3.125MCG] TABLET PO SCH (08:18)
[2022-09-13 16:10] VITALS: BP 141/71
[2022-09-13] MEDS: QUEtiapine FUMARATE 25 MG TABLET PO SCH (20:17)
[2022-09-14] MEDS: PHENobarbital 30 MG TABLET PO SCH (08:14)
[2022-09-14] MEDS: AmLODIPine BESYLATE 5 MG TABLET PO SCH (08:14)
[2022-09-14] MEDS: CarBAMazepine 200 MG TABLET PO SCH ×2 (08:14→12:52)
[2022-09-14] MEDS: CALCIUM OYSTER SHELL 250 MG-VIT D3 125 UNITS[3.125MCG] TABLET PO SCH (08:15)
[2022-09-14] MEDS: MULTIVITAMINS, THERAPEUTIC TABLET PO SCH (08:15)
[2022-09-14] MEDS: ASPIRIN 81 MG DR TABLET PO SCH (08:15)
[2022-09-14 08:25] VITALS: BP 136/64
[2022-09-14] MEDS ORDERED: AMLO-257 PO (11:51)
[2022-09-14] MEDS ORDERED: PHEN30TA PO ×2 (11:51)
[2022-09-14] MEDS ORDERED: Multivitamins/Therapeutic PO (11:51)
[2022-09-14] MEDS ORDERED: ASPI-1444 PO (11:51)
[2022-09-14] MEDS ORDERED: QUET25TA36 PO (11:51)
[2022-09-14] MEDS ORDERED: CALC-1275 PO (11:51)
[2022-09-14] MEDS ORDERED: CARB200T6 PO (11:51)
== END 2022-09-14 15:46 | disposition home or self-care (01) | DRG 885 ==
LOC: EMS 17:02 → 3EC 08-30 00:36
PROVIDERS: ADMIT Psychiatry & Neurology Child & Adolescent Psychiatry; ATTEND Psychiatry & Neurology Psychiatry
DX: F20.0 Paranoid schizophrenia (principal); E87.1 Hypo-osmolality and hyponatremia; R45.851 Suicidal ideations; G40.909 Epilepsy, unspecified, not intractable, without status epilepticus; I10 Essential (primary) hypertension; E66.9 Obesity, unspecified; Z68.32 Body mass index [BMI] 32.0-32.9, adult; M81.0 Age-related osteoporosis without current pathological fracture; Z20.822 Contact with and (suspected) exposure to COVID-19; Z79.899 Other long term (current) drug therapy; F41.9 Anxiety disorder, unspecified
CPT/HCPCS: 80048; 80053; 80156; 80184; 80307; 81001; 85025; 99285; G0480

== ENCOUNTER 2023-01-29 13:27 | Inpatient (IN) | payer MEDICARE, MEDICAID ==
[~2023-01-29] VITALS: Ht 162.6 cm; Wt 87.1 kg
[~2023-01-29 13:27] MED LIST changes: +AMLO-257 PO; -AMLO-258 PO; +ASPI-1444 PO; -ASPI-989 PO; +CALC-1275 PO; -CARB-60 PO; +CARB200T6 PO; -LOSA-422 PO; +Multivitamins/Therapeutic PO; -PHEN20EL10 PO; +PHEN30TA PO; -PHEN30TA50 PO; +QUET25TA36 PO
[2023-01-29 15:21] LABS: BASOPHILS % (AUTO) 0.7 % (0.0-2.0); EOSINOPHILS % (AUTO) 0.4 % (1.0-6.0); HEMATOCRIT 39.8 % (36-46); HEMOGLOBIN 13.8 g/dL (12.0-16.0); LYMPHOCYTES % (AUTO) 20.2 % (22.0-44.0); MEAN CORPUSCULAR HEMOGLOBIN 31.5 pg (26.0-34.0); MEAN CORPUSCULAR HGB CONC 34.6 G/dL (31.0-37.0); MEAN CORPUSCULAR VOLUME 91 fL (80-100); MONOCYTES # (AUTO) 0.8 K/uL (0.1-1.0); MONOCYTES % (AUTO) 8.3 % (2.0-9.0); NEUTROPHILS % (AUTO) 70.4 % (40.0-70.0); PLATELET COUNT (AUTO) 383 K/uL (150-450); RED BLOOD CELL COUNT(AUTO) 4.37 MIL/uL (4.00-5.20); RED CELL DISTRIBUTION WIDTH 13.1 % (11.5-14.5)
[2023-01-29 15:29] LABS: COVID AG,FIA SOURCE NASAL SWAB
[2023-01-29 15:38] LABS: ALANINE AMINOTRANSFERASE 19 U/L (12-78); ALBUMIN 3.5 g/dL (3.4-5.0); ALKALINE PHOSPHATASE 131 U/L (46-116); ASPARTATE AMINOTRANSFERASE 17 U/L (15-37); BILIRUBIN,TOTAL 0.4 mg/dL (0.1-1.0); CALCIUM, TOTAL 9.2 mg/dL (8.8-10.5); CARBON DIOXIDE 29 mmol/L (22-29); CREATININE 0.57 mg/dL (0.60-1.30); GLOMERULAR FILTR. RATE CALC > 60 mL/min (>60); GLUCOSE,RANDOM 106 mg/dL (70-110); TOTAL PROTEIN, SERUM 6.7 g/dL (6.4-8.2)
[2023-01-29 15:58] LABS: ANION GAP 8 mmol/L (8-16); CHLORIDE 86 mmol/L (98-107); POTASSIUM 4.3 mmol/L (3.5-5.1)
[2023-01-29 16:06] LABS: SODIUM SERUM 123 mmol/L (136-145)
[2023-01-29] MEDS ORDERED: SODIUM CHLORIDE 0.9% 1,000 ML IV ONE (16:15)
[2023-01-29] MEDS ORDERED: QUEtiapine FUMARATE 100 MG TABLET PO PRN (17:30)
[2023-01-29] MEDS ORDERED: ZOLPIDEM TARTRATE 10 MG TABLET PO PRN (17:30)
[2023-01-29] MEDS ORDERED: LORazepam 2 MG TABLET PO PRN (17:30)
[2023-01-30 01:49] VITALS: BP 120/70; PULSE 84; RESP 18; TEMP 97.4; O2SAT 97
[2023-01-30 08:50] LABS: ALANINE AMINOTRANSFERASE 16 U/L (12-78); ALBUMIN 2.8 g/dL (3.4-5.0); ALKALINE PHOSPHATASE 110 U/L (46-116); ANION GAP 7 mmol/L (8-16); ASPARTATE AMINOTRANSFERASE 20 U/L (15-37); BILIRUBIN,TOTAL 0.3 mg/dL (0.1-1.0); CALCIUM, TOTAL 7.8 mg/dL (8.8-10.5); CARBON DIOXIDE 28 mmol/L (22-29); CHLORIDE 94 mmol/L (98-107); CREATININE 0.39 mg/dL (0.60-1.30); GLOMERULAR FILTR. RATE CALC > 60 mL/min (>60); GLUCOSE,RANDOM 85 mg/dL (70-110); POTASSIUM 3.6 mmol/L (3.5-5.1); SODIUM SERUM 128 mmol/L (136-145); TOTAL PROTEIN, SERUM 5.6 g/dL (6.4-8.2)
[2023-01-30 09:23] VITALS: BP 100/69; PULSE 95; RESP 19; TEMP 98.6; O2SAT 99
[2023-01-30] MEDS: LOSARTAN POTASSIUM 50 MG TABLET PO SCH (12:17)
[2023-01-30] MEDS: HYDROCHLOROTHIAZIDE 25 MG TABLET PO SCH (12:18)
[2023-01-30] MEDS: CarBAMazepine 200 MG TABLET PO SCH ×2 (13:00→17:15)
[2023-01-30] MEDS ORDERED: GuaiFENesin/D-METHORPHAN [SUGAR-FREE] 200-20MG/10 ML SYRUP UDCUP PO PRN (13:45)
[2023-01-30] MEDS ORDERED: NICOTINE 14 MG/24 HOUR PATCH TD PRN (13:45)
[2023-01-30] MEDS ORDERED: ONDANSETRON HCL 4 MG TABLET PO PRN (13:45)
[2023-01-30] MEDS ORDERED: MAGNESIUM HYDROXIDE SUSPENSION 30 ML UDCUP PO PRN (13:45)
[2023-01-30] MEDS ORDERED: IBUPROFEN 400 MG TABLET PO PRN (13:45)
[2023-01-30] MEDS ORDERED: ALBUTEROL SULFATE HFA 90 MCG/PUFF 8 GM INHALER IH PRN (13:45)
[2023-01-30] MEDS ORDERED: LOPERAMIDE HCL 2 MG CAPSULE PO PRN (13:45)
[2023-01-30] MEDS ORDERED: MAG HYDROX/AL HYDROX/SIMETH ES 30 ML SUSPENSION UDCUP PO PRN (13:45)
[2023-01-30] MEDS ORDERED: DOCUSATE SODIUM 100 MG CAPSULE PO PRN (13:45)
[2023-01-30] MEDS ORDERED: ACETAMINOPHEN 325 MG TABLET PO PRN (13:45)
[2023-01-30] MEDS ORDERED: PETROLATUM,WHITE 28 GM JELLY TP PRN (13:45)
[2023-01-30] MEDS ORDERED: CloNIDine HCL 0.1 MG TABLET PO PRN (13:45)
[2023-01-30] MEDS ORDERED: CarBAMazepine 200 MG TABLET PO SCH (17:00)
[2023-01-30] MEDS: QUEtiapine FUMARATE 25 MG TABLET PO SCH (17:15)
[2023-01-30 20:41] VITALS: BP 147/76; PULSE 89; RESP 17; TEMP 98.6; O2SAT 97
[2023-01-30] MEDS: QUEtiapine FUMARATE 100 MG TABLET PO SCH (20:49)
[2023-01-30] MEDS: PHENobarbital 30 MG TABLET PO SCH (20:49)
[2023-01-31 08:07] LABS: HEMOGLOBIN A1C 5.4 % (3.8-5.6)
[2023-01-31 08:21] LABS: CHOL/HDL RATIO 3.2 (3.9-5.7); THYROID STIMULATING HORMONE 2.12 uIU/mL (0.36-3.74)
[2023-01-31 08:27] VITALS: BP 110/64; PULSE 97; RESP 18; TEMP 98.8; O2SAT 97
[2023-01-31] MEDS: ASPIRIN 81 MG DR TABLET PO SCH (09:47)
[2023-01-31] MEDS: CALCIUM OYSTER SHELL 250 MG-VIT D3 125 UNITS[3.125MCG] TABLET PO SCH (09:47)
[2023-01-31] MEDS: QUEtiapine FUMARATE 25 MG TABLET PO SCH ×2 (09:48→17:07)
[2023-01-31] MEDS: LOSARTAN POTASSIUM 50 MG TABLET PO SCH (09:48)
[2023-01-31] MEDS: AmLODIPine BESYLATE 5 MG TABLET PO SCH (09:48)
[2023-01-31] MEDS: HYDROCHLOROTHIAZIDE 25 MG TABLET PO SCH (09:48)
[2023-01-31] MEDS: PHENobarbital 30 MG TABLET PO SCH ×2 (09:48→21:21)
[2023-01-31] MEDS: CarBAMazepine 200 MG TABLET PO SCH ×3 (09:49→17:07)
[2023-01-31 20:27] VITALS: BP 122/81; PULSE 102; RESP 17; TEMP 98.4; O2SAT 98
[2023-01-31] MEDS: QUEtiapine FUMARATE 100 MG TABLET PO SCH (21:25)
[2023-02-01 04:07] VITALS: BP 136/83; PULSE 104; RESP 18; TEMP 97.3; O2SAT 99
[2023-02-01 08:31] VITALS: BP 121/68; PULSE 90; RESP 18; TEMP 97.5; O2SAT 98
[2023-02-01 08:31] LABS: ANION GAP 6 mmol/L (8-16); CALCIUM, TOTAL 8.2 mg/dL (8.8-10.5); CARBON DIOXIDE 28 mmol/L (22-29); CHLORIDE 97 mmol/L (98-107); CREATININE 0.51 mg/dL (0.60-1.30); GLOMERULAR FILTR. RATE CALC > 60 mL/min (>60); GLUCOSE,RANDOM 88 mg/dL (70-110); POTASSIUM 4.1 mmol/L (3.5-5.1); SODIUM SERUM 131 mmol/L (136-145)
[2023-02-01] MEDS: QUEtiapine FUMARATE 25 MG TABLET PO SCH (09:27)
[2023-02-01] MEDS: LOSARTAN POTASSIUM 50 MG TABLET PO SCH (09:27)
[2023-02-01] MEDS: PHENobarbital 30 MG TABLET PO SCH (09:27)
[2023-02-01] MEDS: AmLODIPine BESYLATE 5 MG TABLET PO SCH (09:27)
[2023-02-01] MEDS: HYDROCHLOROTHIAZIDE 25 MG TABLET PO SCH (09:27)
[2023-02-01] MEDS: CarBAMazepine 200 MG TABLET PO SCH (09:28)
[2023-02-01] MEDS: ASPIRIN 81 MG DR TABLET PO SCH (09:28)
[2023-02-01] MEDS: CALCIUM OYSTER SHELL 250 MG-VIT D3 125 UNITS[3.125MCG] TABLET PO SCH (09:28)
[2023-02-01] MEDS ORDERED: QUET25TA PO ×2 (10:19→10:20)
[2023-02-01] MEDS ORDERED: QUET100T PO (10:21)
[2023-02-01] MEDS ORDERED: QUET25TA36 PO (18:55)
[2023-02-01] MEDS ORDERED: QUET100T34 PO (18:55)
== END 2023-02-01 12:00 | disposition home or self-care (01) | DRG 885 ==
LOC: EMS 13:29 → B2S 01-30 00:23
PROVIDERS: ADMIT Psychiatry & Neurology Child & Adolescent Psychiatry; ATTEND Psychiatry & Neurology Child & Adolescent Psychiatry
DX: F20.0 Paranoid schizophrenia (principal); R45.851 Suicidal ideations; E87.1 Hypo-osmolality and hyponatremia; F32.A Depression, unspecified; I10 Essential (primary) hypertension; E66.9 Obesity, unspecified; Z20.822 Contact with and (suspected) exposure to COVID-19; E78.5 Hyperlipidemia, unspecified; G40.909 Epilepsy, unspecified, not intractable, without status epilepticus; E55.9 Vitamin D deficiency, unspecified; Z79.899 Other long term (current) drug therapy; Z79.82 Long term (current) use of aspirin; Z59.00 Homelessness unspecified; Z68.33 Body mass index [BMI] 33.0-33.9, adult
CPT/HCPCS: 80048; 80053; 80061; 83036; 84295; 84443; 85025; 99285; G0480

== ENCOUNTER 2023-02-06 11:06 | Emergency (ER) | payer OTHER ==
[~2023-02-06] VITALS: Ht 165.1 cm; Wt 75.9 kg
[~2023-02-06 11:06] MED LIST changes: +QUET100T PO; +QUET100T34 PO; +QUET25TA PO
[2023-02-06] MEDS ORDERED: LOSA1TAB37 PO (11:18)
[2023-02-06] MEDS ORDERED: AMLO10TA55 PO (11:18)
[2023-02-06 15:38] LABS: BASOPHILS % (AUTO) 0.3 % (0.0-2.0); EOSINOPHILS % (AUTO) 0.6 % (1.0-6.0); HEMOGLOBIN 13.8 g/dL (12.0-16.0); LYMPHOCYTES % (AUTO) 24.6 % (22.0-44.0); MEAN CORPUSCULAR HEMOGLOBIN 31.5 pg (26.0-34.0); MEAN CORPUSCULAR HGB CONC 34.4 G/dL (31.0-37.0); MEAN CORPUSCULAR VOLUME 92 fL (80-100); MONOCYTES # (AUTO) 0.7 K/uL (0.1-1.0); MONOCYTES % (AUTO) 8.8 % (2.0-9.0); NEUTROPHILS # (AUTO) 5.2 K/uL (1.8-7.7); NEUTROPHILS % (AUTO) 65.7 % (40.0-70.0); PLATELET COUNT (AUTO) 405 K/uL (150-450); RED BLOOD CELL COUNT(AUTO) 4.36 MIL/uL (4.00-5.20); RED CELL DISTRIBUTION WIDTH 12.5 % (11.5-14.5)
[2023-02-06 15:49] LABS: ANION GAP 13 mmol/L (8-16); CALCIUM, TOTAL 8.7 mg/dL (8.8-10.5); CARBON DIOXIDE 27 mmol/L (22-29); CHLORIDE 88 mmol/L (98-107); CREATININE 0.48 mg/dL (0.60-1.30); GLOMERULAR FILTR. RATE CALC > 60 mL/min (>60); GLUCOSE,RANDOM 93 mg/dL (70-110); POTASSIUM 3.8 mmol/L (3.5-5.1); SODIUM SERUM 128 mmol/L (136-145); UREA NITROGEN, BLOOD 13 mg/dL (7-18)
[2023-02-06 15:54] LABS: ALANINE AMINOTRANSFERASE 26 U/L (12-78); ALBUMIN 3.4 g/dL (3.4-5.0); ALKALINE PHOSPHATASE 134 U/L (46-116); ASPARTATE AMINOTRANSFERASE 17 U/L (15-37); BILIRUBIN,TOTAL 0.2 mg/dL (0.1-1.0); TOTAL PROTEIN, SERUM 6.8 g/dL (6.4-8.2)
[2023-02-06 15:56] LABS: TROPONIN I-HIGH SENSITIVITY 6 ng/L (<51)
[2023-02-06 18:02] LABS: APPEARANCE,URINE CLEAR (CLEAR); BILIRUBIN,URINE NEGATIVE (NEGATIVE); COLOR,URINE YELLOW (YELLOW); GLUCOSE, URINE (UA) NEGATIVE (NEGATIVE); KETONES,URINE NEGATIVE (NEGATIVE); LEUKOCYTE ESTERASE ,URINE SMALL (NEGATIVE); NITRATE,URINE NEGATIVE (NEGATIVE); OCCULT BLOOD,URINE NEGATIVE (NEGATIVE); PH,URINE 6.5 (5.0-8.0); PH,URINE DRUG SCREEN 6.5 (5.0-8.0); PROTEIN,URINE NEGATIVE (NEGATIVE); SPECIFIC GRAVITIY, URINE 1.016 (1.003-1.030); UROBILINOGEN,URINE <=1.0 mg/dL (<=1.0)
[2023-02-06 18:16] LABS: AMPHET/METH SCREEN,URINE NEGATIVE (NEGATIVE); BARBITURATE SCREEN, URINE POSITIVE (NEGATIVE); BENZODIAZEPINES SCREEN,URINE NEGATIVE (NEGATIVE); CANNABINOID SCREEN,URINE NEGATIVE (NEGATIVE); COCAINE SCREEN,URINE NEGATIVE (NEGATIVE); METHADONE SCREEN, URINE NEGATIVE (NEGATIVE); OPIATE SCREEN,URINE NEGATIVE (NEGATIVE); PHENCYCLIDINE SCREEN,URINE NEGATIVE (NEGATIVE)
[2023-02-06 18:25] LABS: ALCOHOL, URINE DRUG SCREEN NEGATIVE (NEGATIVE)
[2023-02-06 18:50] LABS: BACTERIA,URINE Rare /HPF (None Seen); RBC,URINE 0-2 /HPF (0-2)
[2023-02-06 18:51] LABS: SQUAMOUS EPITHELIAL CELL,UR Few /LPF (None Seen)
[2023-02-06] MEDS ORDERED: SODIUM CHLORIDE 0.9% 1,000 ML IV ONE (21:15)
[2023-02-06] MEDS ORDERED: SODIUM CHLORIDE 1 GM TABLET PO ONE (22:15)
[2023-02-07 00:30] VITALS: BP 132/74; PULSE 74; RESP 14; TEMP 97.3
== END 2023-02-07 00:30 | disposition home or self-care (01) ==
LOC: EMS 11:14
DX: E87.1 Hypo-osmolality and hyponatremia (principal); R53.1 Weakness; I10 Essential (primary) hypertension
CPT/HCPCS: 99285; 96360; 71045; 80053; 81001; 83880; 84484; 85025; 36415; 87086; 87186; 93005; 80307; J7030

== ENCOUNTER 2023-02-09 10:37 | Inpatient (IN) | payer OTHER ==
[~2023-02-09] VITALS: Ht 162.6 cm; Wt 90.0 kg
[~2023-02-09 10:37] MED LIST changes: -AMLO-257 PO; +AMLO10TA55 PO; +LOSA1TAB37 PO; -QUET25TA PO
[2023-02-09 11:44] LABS: BASOPHILS % (AUTO) 0.4 % (0.0-2.0); EOSINOPHILS % (AUTO) 0.3 % (1.0-6.0); HEMATOCRIT 37.9 % (36-46); HEMOGLOBIN 12.8 g/dL (12.0-16.0); LYMPHOCYTES % (AUTO) 15.2 % (22.0-44.0); MEAN CORPUSCULAR HEMOGLOBIN 31.4 pg (26.0-34.0); MEAN CORPUSCULAR HGB CONC 33.9 G/dL (31.0-37.0); MEAN CORPUSCULAR VOLUME 93 fL (80-100); MONOCYTES # (AUTO) 0.6 K/uL (0.1-1.0); MONOCYTES % (AUTO) 8.8 % (2.0-9.0); NEUTROPHILS # (AUTO) 5.1 K/uL (1.8-7.7); NEUTROPHILS % (AUTO) 75.3 % (40.0-70.0); PLATELET COUNT (AUTO) 402 K/uL (150-450); RED BLOOD CELL COUNT(AUTO) 4.09 MIL/uL (4.00-5.20); RED CELL DISTRIBUTION WIDTH 12.7 % (11.5-14.5); WHITE BLOOD COUNT (AUTO) 6.8 K/uL (4.5-11.0)
[2023-02-09 11:53] LABS: ANION GAP 10 mmol/L (8-16); CALCIUM, TOTAL 8.4 mg/dL (8.8-10.5); CARBON DIOXIDE 29 mmol/L (22-29); CHLORIDE 92 mmol/L (98-107); CREATININE 0.54 mg/dL (0.60-1.30); GLOMERULAR FILTR. RATE CALC > 60 mL/min (>60); GLUCOSE,RANDOM 135 mg/dL (70-110); POTASSIUM 3.8 mmol/L (3.5-5.1); SODIUM SERUM 131 mmol/L (136-145); UREA NITROGEN, BLOOD 10 mg/dL (7-18)
[2023-02-09 11:58] LABS: ALANINE AMINOTRANSFERASE 25 U/L (12-78); ALBUMIN 3.4 g/dL (3.4-5.0); ALKALINE PHOSPHATASE 138 U/L (46-116); ASPARTATE AMINOTRANSFERASE 19 U/L (15-37); BILIRUBIN,TOTAL 0.3 mg/dL (0.1-1.0); CARBAMAZEPINE (TEGRETOL) 8.5 mcg/mL (4.0-12.0); PHENOBARBITAL 12 mcg/mL (15-40); TOTAL PROTEIN, SERUM 6.8 g/dL (6.4-8.2)
[2023-02-09] MEDS ORDERED: LORazepam 1 MG TABLET PO ONE (12:15)
[2023-02-09 12:19] LABS: ALCOHOL, BLOOD (SERUM) < 3 mg/dL (0-10)
[2023-02-09 13:23] LABS: ALCOHOL, URINE DRUG SCREEN NEGATIVE (NEGATIVE); AMPHET/METH SCREEN,URINE NEGATIVE (NEGATIVE); BARBITURATE SCREEN, URINE POSITIVE (NEGATIVE); BENZODIAZEPINES SCREEN,URINE NEGATIVE (NEGATIVE); CANNABINOID SCREEN,URINE NEGATIVE (NEGATIVE); COCAINE SCREEN,URINE NEGATIVE (NEGATIVE); METHADONE SCREEN, URINE NEGATIVE (NEGATIVE); OPIATE SCREEN,URINE NEGATIVE (NEGATIVE); PHENCYCLIDINE SCREEN,URINE NEGATIVE (NEGATIVE)
[2023-02-09] MEDS ORDERED: HYDROCODONE/ACETAMINOPHEN 5-325 MG TABLET PO PRN (15:30)
[2023-02-09] MEDS ORDERED: ONDANSETRON HCL 4 MG/2 ML VIAL IVP PRN (15:30)
[2023-02-09] MEDS ORDERED: MORPHINE SULFATE 2 MG/ML SYRINGE IVP PRN (15:30)
[2023-02-09] MEDS ORDERED: BISACODYL 10 MG RECTAL RECTAL SUPPOSITORY PR PRN (15:30)
[2023-02-09] MEDS ORDERED: MAGNESIUM HYDROXIDE SUSPENSION 30 ML UDCUP PO PRN (15:30)
[2023-02-09] MEDS ORDERED: LORazepam 2 MG/ML VIAL IVP PRN (15:30)
[2023-02-09] MEDS ORDERED: ACETAMINOPHEN 325 MG TABLET PO PRN (15:30)
[2023-02-09] MEDS ORDERED: ZOLPIDEM TARTRATE 5 MG TABLET PO PRN (15:30)
[2023-02-09] MEDS ORDERED: MULT-711 PO (15:37)
[2023-02-09] MEDS ORDERED: CarBAMazepine 200 MG TABLET PO SCH (16:00)
[2023-02-09] MEDS ORDERED: QUEtiapine FUMARATE 25 MG TABLET PO SCH (16:00)
[2023-02-09] MEDS ORDERED: HEPARIN SODIUM,PORCINE 5,000 UNITS/ML VIAL SQ SCH (16:00)
[2023-02-09 17:40] VITALS: BP 168/93; PULSE 91; RESP 20; TEMP 98.7
[2023-02-09] MEDS ORDERED: DOCU-385 PO (18:10)
[2023-02-09] MEDS ORDERED: HYDR25TA2 PO (18:11)
[2023-02-09] MEDS ORDERED: HEPA500018 SQ (18:11)
[2023-02-09] MEDS ORDERED: PANT-31 PO (18:12)
[2023-02-09] MEDS ORDERED: LevETIRAcetam 250 MG TABLET PO SCH (21:00)
[2023-02-09] MEDS ORDERED: DOCUSATE SODIUM 100 MG CAPSULE PO SCH (21:00)
[2023-02-09] MEDS ORDERED: PHENobarbital 30 MG TABLET PO SCH (21:00)
[2023-02-09] MEDS ORDERED: QUEtiapine FUMARATE 100 MG TABLET PO SCH (21:00)
[2023-02-10] MEDS ORDERED: PANTOPRAZOLE SODIUM 40 MG DR TABLET PO SCH (09:00)
[2023-02-10] MEDS ORDERED: ASPIRIN 81 MG DR TABLET PO SCH (09:00)
[2023-02-10] MEDS ORDERED: CALCIUM OYSTER SHELL 250 MG-VIT D3 125 UNITS[3.125MCG] TABLET PO SCH (09:00)
[2023-02-10] MEDS ORDERED: HYDROCHLOROTHIAZIDE 25 MG TABLET PO SCH (09:00)
[2023-02-10] MEDS ORDERED: PHENobarbital 30 MG TABLET PO SCH (09:00)
[2023-02-10] MEDS ORDERED: LOSARTAN POTASSIUM 50 MG TABLET PO SCH (09:00)
[2023-02-10] MEDS ORDERED: MISC MED-CONVERTED FROM AMBULATORY (Losartan/Hydrochlorothiazide (Losartan-Hctz 50-12.5 Mg PO SCH (09:00)
[2023-02-10] MEDS ORDERED: AmLODIPine BESYLATE 10 MG TABLET PO SCH (09:00)
== END 2023-02-09 18:10 | DRG 101 ==
LOC: EMS 11:04 → 6S 14:27
PROVIDERS: ADMIT Internal Medicine; ATTEND Internal Medicine
DX: G40.909 Epilepsy, unspecified, not intractable, without status epilepticus (principal); E87.1 Hypo-osmolality and hyponatremia; F20.9 Schizophrenia, unspecified; E66.01 Morbid (severe) obesity due to excess calories; I10 Essential (primary) hypertension; T42.3X6A Underdosing of barbiturates, initial encounter; Y92.89 Other specified places as the place of occurrence of the external cause; Z79.899 Other long term (current) drug therapy; Z68.34 Body mass index [BMI] 34.0-34.9, adult
CPT/HCPCS: 80053; 80156; 80184; 80307; 85025; 99285; G0480; J1644

== ENCOUNTER 2023-02-25 15:17 | Emergency (ER) | payer OTHER ==
[~2023-02-25] VITALS: Ht 162.6 cm; Wt 81.8 kg
[~2023-02-25 15:17] MED LIST changes: +DOCU-385 PO; +HEPA500018 SQ; +HYDR25TA2 PO; +MULT-711 PO; -Multivitamins/Therapeutic PO; +PANT-31 PO; -QUET100T PO
[2023-02-25 15:21] VITALS: TEMP 98.5
[2023-02-25 17:30] VITALS: BP 110/60; PULSE 90; RESP 14
== END 2023-02-25 19:13 | disposition home or self-care (01) ==
LOC: EMS 15:20
DX: F20.9 Schizophrenia, unspecified (principal); I10 Essential (primary) hypertension; G40.909 Epilepsy, unspecified, not intractable, without status epilepticus; Z76.0 Encounter for issue of repeat prescription
CPT/HCPCS: 99281; Z7502

== ENCOUNTER 2023-11-18 12:33 | Emergency (ER) | payer OTHER ==
[~2023-11-18] VITALS: Ht 162.6 cm; Wt 77.3 kg
[~2023-11-18 12:33] MED LIST changes: -HEPA500018 SQ
[2023-11-18 13:05] VITALS: TEMP 97.8
[2023-11-18 13:37] LABS: BASOPHILS % (AUTO) 0.3 % (0.0-2.0); EOSINOPHILS % (AUTO) 0.2 % (1.0-6.0); HEMATOCRIT 39.5 % (36-46); HEMOGLOBIN 13.6 g/dL (12.0-16.0); LYMPHOCYTES # (AUTO) 1.7 K/uL (1.0-4.8); LYMPHOCYTES % (AUTO) 22.1 % (22.0-44.0); MEAN CORPUSCULAR HEMOGLOBIN 31.4 pg (26.0-34.0); MEAN CORPUSCULAR HGB CONC 34.3 G/dL (31.0-37.0); MEAN CORPUSCULAR VOLUME 92 fL (80-100); MONOCYTES # (AUTO) 0.4 K/uL (0.1-1.0); NEUTROPHILS # (AUTO) 5.4 K/uL (1.8-7.7); NEUTROPHILS % (AUTO) 71.4 % (40.0-70.0); PLATELET COUNT (AUTO) 328 K/uL (150-450); RED BLOOD CELL COUNT(AUTO) 4.31 MIL/uL (4.00-5.20); RED CELL DISTRIBUTION WIDTH 12.6 % (11.5-14.5); WHITE BLOOD COUNT (AUTO) 7.5 K/uL (4.5-11.0)
[2023-11-18 13:47] LABS: ANION GAP 7 mmol/L (8-16); CALCIUM, TOTAL 9.1 mg/dL (8.8-10.5); CARBON DIOXIDE 28 mmol/L (22-29); CHLORIDE 94 mmol/L (98-107); CREATININE 0.64 mg/dL (0.60-1.30); GLOMERULAR FILTR. RATE CALC > 60 mL/min (>60); GLUCOSE,RANDOM 124 mg/dL (70-110); POTASSIUM 3.2 mmol/L (3.5-5.1); SODIUM SERUM 129 mmol/L (136-145); UREA NITROGEN, BLOOD 9 mg/dL (7-18)
[2023-11-18 13:50] LABS: B-TYPE NATRIURETIC PEPTIDE 14 pg/mL (0-100)
[2023-11-18 13:53] LABS: CREATINE KINASE, TOTAL ONLY 34 U/L (26-192)
[2023-11-18 13:55] LABS: TROPONIN I-HIGH SENSITIVITY 5 ng/L (<51)
[2023-11-18 14:47] LABS: APPEARANCE,URINE CLEAR (CLEAR); BILIRUBIN,URINE NEGATIVE (NEGATIVE); COLOR,URINE YELLOW (YELLOW); GLUCOSE, URINE (UA) NEGATIVE (NEGATIVE); KETONES,URINE NEGATIVE (NEGATIVE); LEUKOCYTE ESTERASE ,URINE SMALL (NEGATIVE); NITRATE,URINE NEGATIVE (NEGATIVE); OCCULT BLOOD,URINE NEGATIVE (NEGATIVE); PROTEIN,URINE NEGATIVE (NEGATIVE); SPECIFIC GRAVITIY, URINE 1.016 (1.003-1.030); UROBILINOGEN,URINE <=1.0 mg/dL (<=1.0)
[2023-11-18] MEDS: SODIUM CHLORIDE 0.9% 1,000 ML IV ONE (14:57)
[2023-11-18 15:08] LABS: RBC,URINE None Seen /HPF (0-2)
[2023-11-18 15:09] LABS: BACTERIA,URINE Few /HPF (None Seen)
[2023-11-18 16:20] VITALS: BP 120/55; PULSE 88; RESP 14
== END 2023-11-18 22:33 | disposition admitted as inpatient to this hospital (09) ==
LOC: EMS 12:33
DX: R55 Syncope and collapse (principal); R42 Dizziness and giddiness; I10 Essential (primary) hypertension; Z79.899 Other long term (current) drug therapy
CPT/HCPCS: 99285; 96360; 71045; 80048; 81001; 82550; 83880; 84484; 85025; 36415; 87086; 87186; 93005; J7030

== ENCOUNTER 2024-04-17 10:28 | Emergency (ER) | payer OTHER ==
[~2024-04-17] VITALS: Ht 162.6 cm; Wt 72.7 kg
[2024-04-17 10:36] VITALS: TEMP 98.6
[2024-04-17 11:09] LABS: APPEARANCE,URINE HAZY (CLEAR); BILIRUBIN,URINE NEGATIVE (NEGATIVE); COLOR,URINE YELLOW (YELLOW); GLUCOSE, URINE (UA) NEGATIVE (NEGATIVE); KETONES,URINE TRACE mg/dL (NEGATIVE); LEUKOCYTE ESTERASE ,URINE LARGE (NEGATIVE); NITRATE,URINE NEGATIVE (NEGATIVE); OCCULT BLOOD,URINE NEGATIVE (NEGATIVE); PH,URINE 5.5 (5.0-8.0); PROTEIN,URINE TRACE mg/dL (NEGATIVE); SPECIFIC GRAVITIY, URINE 1.018 (1.003-1.030); UROBILINOGEN,URINE <=1.0 mg/dL (<=1.0)
[2024-04-17 11:14] LABS: BASOPHILS % (AUTO) 0.6 % (0.0-2.0); EOSINOPHILS % (AUTO) 0.4 % (1.0-6.0); HEMATOCRIT 42.2 % (36-46); HEMOGLOBIN 14.9 g/dL (12.0-16.0); LYMPHOCYTES # (AUTO) 1.8 K/uL (1.0-4.8); LYMPHOCYTES % (AUTO) 23.4 % (22.0-44.0); MEAN CORPUSCULAR HEMOGLOBIN 31.6 pg (26.0-34.0); MEAN CORPUSCULAR HGB CONC 35.3 G/dL (31.0-37.0); MEAN CORPUSCULAR VOLUME 90 fL (80-100); MONOCYTES # (AUTO) 0.9 K/uL (0.1-1.0); MONOCYTES % (AUTO) 10.9 % (2.0-9.0); NEUTROPHILS # (AUTO) 5.1 K/uL (1.8-7.7); NEUTROPHILS % (AUTO) 64.7 % (40.0-70.0); PLATELET COUNT (AUTO) 367 K/uL (150-450); RED BLOOD CELL COUNT(AUTO) 4.71 MIL/uL (4.00-5.20); RED CELL DISTRIBUTION WIDTH 12.8 % (11.5-14.5); WHITE BLOOD COUNT (AUTO) 7.8 K/uL (4.5-11.0)
[2024-04-17 11:16] LABS: BACTERIA,URINE Few /HPF (None Seen); RBC,URINE None Seen /HPF (0-2); SQUAMOUS EPITHELIAL CELL,UR Few /LPF (None Seen)
[2024-04-17 11:28] LABS: CALCIUM, TOTAL 9.1 mg/dL (8.8-10.5); CREATININE 1.23 mg/dL (0.60-1.30); MAGNESIUM 1.8 mg/dL (1.80-2.40)
[2024-04-17 11:36] LABS: POTASSIUM 2.3 mmol/L (3.5-5.1)
[2024-04-17] MEDS: POTASSIUM CHLORIDE 20 MEQ ER TABLET PO ONE (11:52)
[2024-04-17] MEDS: POTASSIUM CHLORIDE 40 MEQ in SODIUM CHLORIDE 0.9% 1,000 ML IV ONE (12:07)
[2024-04-17] MEDS: MAGNESIUM SULFATE 2 GM/WATER 50 ML IV ONE (12:07)
[2024-04-17 12:56] LABS: ALBUMIN 3.6 g/dL (3.4-5.0); BILIRUBIN,DIRECT 0.1 mg/dL (0.00-0.20); BILIRUBIN,TOTAL 0.5 mg/dL (0.1-1.0); TOTAL PROTEIN, SERUM 7.1 g/dL (6.4-8.2)
[2024-04-17 13:03] VITALS: BP 153/84; PULSE 81; RESP 15; O2SAT 96
== END 2024-04-17 14:11 | disposition short-term general hospital (02) ==
LOC: EMS 10:28
DX: R53.1 Weakness (principal); E87.6 Hypokalemia; I10 Essential (primary) hypertension; F20.9 Schizophrenia, unspecified; E87.1 Hypo-osmolality and hyponatremia; Z60.2 Problems related to living alone; Z79.82 Long term (current) use of aspirin; Z79.899 Other long term (current) drug therapy
CPT/HCPCS: 99285; 96365; 80048; 80076; 81001; 83735; 85025; 87086; 36415; 93005; 96368; J3480; J7030; J3475

== ENCOUNTER 2024-04-27 13:07 | Emergency (ER) | payer OTHER ==
[~2024-04-27] VITALS: Ht 162.6 cm; Wt 84.0 kg
[2024-04-27 13:30] VITALS: TEMP 98.1
[2024-04-27 14:45] VITALS: BP 108/56; PULSE 76; RESP 17; O2SAT 99
== END 2024-04-27 15:03 | disposition home or self-care (01) ==
LOC: EMS 13:07
DX: I95.2 Hypotension due to drugs (principal); R42 Dizziness and giddiness; I10 Essential (primary) hypertension; F20.9 Schizophrenia, unspecified; G40.909 Epilepsy, unspecified, not intractable, without status epilepticus; Z79.82 Long term (current) use of aspirin
CPT/HCPCS: 99281; Z7502